=== PATIENT | male | born 1945 | race Caucasian/White ===

== ENCOUNTER → 2016-12-07 | Outpatient (REF) | payer MEDICARE, OTHER | LOC: M LABDRAW1 09:39 | PROVIDERS: ATTEND Optometrist | DX: H53.2 Diplopia (principal) ==

== ENCOUNTER → 2016-12-23 | Outpatient (CLI) | payer MEDICARE, OTHER ==
[~2016-12-23] MED LIST: PROHANCE 279.3MG/ML 15ML VIAL (A9576) As Ordered ONE; PROHANCE 279.3MG/ML 5ML VIAL (A9576) As Ordered ONE
--- NOTE | 2016-12-23 19:30 | REP ---
MR BRAIN WITHOUT AND WITH CONTRAST: HISTORY: Diplopia. CONTRAST: ProHance 16.4 mL. COMPARISON: 07/21/2014. Areas of increased signal intensity on T2 weighted images are present in the basal ganglia and thalami. These represent old lacunar infarctions. Areas of increased signal intensity on T2 weighted images are present in the periventricular and subcortical white matter and bimal. This represents small vessel ischemic disease. There is no intraparenchymal hemorrhage, acute infarct, mass or midline shift. There is no abnormal enhancement. The ventricular system and cortical sulci as well as subarachnoid space and posterior fossa are dilated consistent with minimal volume loss. There is no extracerebral collection. Mucosal thickening is present in the maxillary sinuses. IMPRESSION: 1. 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 2. Small vessel ischemic disease. 3. Minimal volume loss. Signed by Alvin Cheng MD 12/24/2016 08:30 A
--- NOTE | 2016-12-23 21:42 | REP ---
MRI ORBITS WITHOUT AND WITH CONTRAST: HISTORY: Double vision. CONTRAST: ProHance 16.4 mL The globes, optic nerves and rectus muscles are normal in appearance. There is no orbital lesion. There is no abnormal enhancement. The optic chiasm, cavernous sinus and hypothalamus are normal in appearance. Minimal mucosal thickening is present in the ethmoid and maxillary sinuses. IMPRESSION: There is no orbital lesion. Signed by Alvin Cheng MD 12/24/2016 08:30 A
== END ==
LOC: M RAD 10:11
PROVIDERS: ATTEND Ophthalmology
DX: H53.2 Diplopia (principal)
CPT/HCPCS: 70543; 70553; A9576

== ENCOUNTER → 2017-12-14 | Outpatient (REF) | payer MEDICARE, OTHER ==
[2017-12-16 18:35] LABS: RHEUMATOID FACTOR QUANT < 10.0 IU/ML (<15.0)
[2017-12-16 18:35] LABS: URIC ACID 5.1 MG/DL (3.5-7.2)
[2017-12-18 15:38] LABS: ANTINUCLEAR ANTIBODIES DIRECT Negative (Negative); Lyme Disease IgG/IgM Antibodie <0.91 ISR (0.00-0.90); Lyme Disease IgM Ab Quantitati <0.80 index (0.00-0.79)
== END ==
LOC: M LAB REF 12-16 17:09
DX: M25.50 Pain in unspecified joint (principal)
CPT/HCPCS: 84550

== ENCOUNTER → 2019-03-17 | Outpatient (REF) | payer MEDICARE, OTHER ==
[2019-03-17 12:59] LABS: BASO # 0.1 10^3/uL (0.0-0.2); BASO % 0.5 % (0.0-1.0); EOS # 0.3 10^3/uL (0.0-0.5); EOS % 2.8 % (0.0-3.0); HEMATOCRIT 45.3 % (42.0-52.0); HEMOGLOBIN 14.5 g/dl (13.5-17.5); LYMPH # 3.3 10^3/uL (1.5-5.0); LYMPH % 27.9 % (24.0-44.0); MEAN CORPUSCULAR HEMOGLOBIN 33.1 pg (27.0-33.0); MEAN CORPUSCULAR VOLUME 103.4 fl (80.0-96.0); MONO # 0.9 10^3/uL (0.0-0.8); MONO % 7.6 % (0.0-5.0); NEUTROPHILS # 7.1 10^3/uL (1.5-8.5); NEUTROPHILS % 60.8 % (36.0-66.0); PLATELET COUNT, AUTOMATED 233 10^3/uL (150-450); RED BLOOD COUNT 4.38 10^6/uL (4.30-6.10); WHITE BLOOD COUNT 11.7 10^3/uL (4.0-10.0)
== END ==
LOC: M LAB REF 12:31
PROVIDERS: ATTEND Family Medicine
DX: D72.829 Elevated white blood cell count, unspecified (principal); D64.9 Anemia, unspecified

== ENCOUNTER 2019-11-02 16:29 | Emergency (ER) | payer MEDICARE, OTHER ==
[~2019-11-02] VITALS: Ht 172.7 cm; Wt 82.5 kg
[2019-11-02] MEDS ORDERED: mvi (16:41)
[2019-11-02] MEDS ORDERED: ASPI-264 PO (16:41)
[2019-11-02] MEDS ORDERED: vitamin c (16:41)
[2019-11-02] MEDS ORDERED: LATA0.0015 (16:41)
[2019-11-02] MEDS ORDERED: LEVO100T5 (16:41)
[2019-11-02] MEDS ORDERED: AMLO1TAB25 (16:41)
[2019-11-02] MEDS ORDERED: ALFU10TA3 (16:41)
[2019-11-02] MEDS ORDERED: HYDR25TAB (16:41)
[2019-11-02] MEDS ORDERED: [UNRECOGNIZED DRUG - CODE] (16:41)
[2019-11-02] MEDS ORDERED: FINA5TAB2 (16:41)
--- NOTE | 2019-11-02 17:24 | REPVR ---
PROCEDURE INFORMATION: Exam: XR Right Finger(s) Exam date and time: 11/02/2019 4:55 PM Age: 74 years old Clinical indication: Injury or trauma; Fall; Initial encounter; Sprain or strain; Right; Index finger; Additional info: Pain, deformity, wound, index finger TECHNIQUE: Imaging protocol: XR Right fingers. Views: Minimum 2 views. COMPARISON: No relevant prior studies available. FINDINGS: Bones/joints: There is a posterior dislocation involving the 2nd proximal interphalangeal joint. There is a questionable subtle chip fracture seen on the lateral view just anterior to the head of the proximal phalanx. Soft tissues: There is soft tissue air seen dorsally at the level of the distal 2nd proximal phalanx. IMPRESSION: 1. Dislocation with air in the soft tissues. 2. Questionable chip fracture head of the 2nd proximal phalanx. Electronically signed by: Linwood Forde On 11/02/2019 17:24:19 PM
[2019-11-02] MEDS ORDERED: BOOSTRIX/ADACEL VACCINE (DIPHTH/PERTUSS/ACELL/TETANUS) 0.5ML SYR IM ONE (17:30)
[2019-11-02] MEDS ORDERED: ceFAZolin SOD 1 GM in D5W MINI-BAG PLUS 50 ML IV ONE (17:45)
--- NOTE | 2019-11-02 17:58 | REPVR ---
PROCEDURE INFORMATION: Exam: CT Head Without Contrast Exam date and time: 11/02/2019 5:23 PM Age: 74 years old Clinical indication: Injury or trauma; Fall; Initial encounter; Blunt trauma (contusions or hematomas) TECHNIQUE: Imaging protocol: Computed tomography of the head without contrast. Radiation optimization: All CT scans at this facility use at least one of these dose optimization techniques: automated exposure control; mA and/or kV adjustment per patient size (includes targeted exams where dose is matched to clinical indication); or iterative reconstruction. COMPARISON: MRI-Brain W/O FOLL BY WITH 12/23/2016 11:02 AM FINDINGS: Brain: Stable central and cortical atrophy and small vessel ischemic disease since the MRI. No intracranial hemorrhage. Small polyps are cysts in maxillary sinuses with scattered ethmoidal air cell disease. Ventricles: No ventriculomegaly. Bones/joints: Unremarkable. No acute fracture. Paranasal sinuses: See "Brain" finding. Mastoid air cells: Visualized mastoid air cells are well aerated. Soft tissues: Small right frontal scalp hematoma. IMPRESSION: 1. Frontal scalp hematoma on the right no evidence of intracranial bleed. 2. Intracranial changes. Electronically signed by: Linwood Forde On 11/02/2019 17:58:16 PM
--- NOTE | 2019-11-02 18:11 | REPVR ---
PROCEDURE INFORMATION: Exam: CT Cervical Spine Without Contrast Exam date and time: 11/02/2019 5:23 PM Age: 74 years old Clinical indication: Injury or trauma; Fall; Initial encounter; Blunt trauma TECHNIQUE: Imaging protocol: Computed tomography images of the cervical spine without contrast. Radiation optimization: All CT scans at this facility use at least one of these dose optimization techniques: automated exposure control; mA and/or kV adjustment per patient size (includes targeted exams where dose is matched to clinical indication); or iterative reconstruction. COMPARISON: No relevant prior studies available. FINDINGS: Vertebrae: Mild anterolisthesis of C6 on C7 with intervertebral osteophytes. Mild foraminal stenosis on the left at C4, bilateral mild foraminal stenosis at C5 secondary to uncinate joint osteophytes. Discs/Spinal canal/Neural foramina: There are degenerative changes demonstrated in the atlantoaxial joint at C1-C2 with osteophytes and joint space narrowing. The transverse ligament is normal. Soft tissues: See "Discs/Spinal canal/Neural foramina" finding. Lungs: Mild centrilobular and paraseptal emphysema in the upper lung zones. IMPRESSION: 1. Mild anterolisthesis of C6 on C7 with intervertebral osteophytes. Mild foraminal stenosis on the left at C4, bilateral mild foraminal stenosis at C5 secondary to uncinate joint osteophytes. 2. Mild degenerative spondylosis. 3. No acute findings. Electronically signed by: Galen Harrell On 11/02/2019 18:11:26 PM
--- NOTE | 2019-11-02 18:12 | REPVR ---
PROCEDURE INFORMATION: Exam: XR Right Finger(s) Exam date and time: 11/02/2019 5:41 PM Age: 74 years old Clinical indication: Injury or trauma; Injury history: Post reduction; Follow-up exam; Dislocation; Severity not specified; Right; Index finger; Additional info: R index finger reduction TECHNIQUE: Imaging protocol: XR Right fingers. Views: Minimum 2 views. COMPARISON: CR Fingers RIGHT 11/02/2019 5:01 PM FINDINGS: Bones/joints: Satisfactory reduction of a previously dislocated index finger. Otherwise unremarkable. Soft tissues: Normal. IMPRESSION: Satisfactory reduction of a previously dislocated index finger. Electronically signed by: Galen Harrell On 11/02/2019 18:12:31 PM
[2019-11-02] MEDS ORDERED: LIDOCAINE 1% MDV 20ML VIAL INFIL ONE (18:45)
--- NOTE | 2019-11-02 20:00 | REPVR ---
PROCEDURE INFORMATION: Exam: MR Right Upper Extremity Other Than Joint Without Contrast; Hand Exam date and time: 11/02/2019 7:30 PM Age: 74 years old Clinical indication: Injury or trauma; Injury history: Fall and sliced base of first finger; Injury date: 11/01/19; Additional info: Right index finger injury, R/O flexor tendon injury TECHNIQUE: Imaging protocol: MR of the Right upper extremity without contrast. Exam focused on the hand. COMPARISON: CR Fingers RIGHT 11/02/2019 5:39 PM FINDINGS: Bones and cartilage: Unremarkable. Joint spaces: No joint effusion. Collateral ligaments of digits: Unremarkable. No evidence of tear. Flexor compartment tendons: Visualized flexor tendons are intact. Fluid demonstrated in the flexor tendon sheath of the middle finger consistent with synovitis. Extensor compartment tendons: Visualized extensor tendons are intact. Muscles: Unremarkable. Soft tissues: Soft tissue edema demonstrated in the thenar eminence including T1-T2 bright signal consistent with acute hemorrhage. IMPRESSION: 1. Soft tissue edema demonstrated in the thenar eminence including T1-T2 bright signal consistent with acute hemorrhage. 2. Visualized flexor tendons are intact. Visualized extensor tendons are intact. 3. Fluid demonstrated in the flexor tendon sheath of the middle finger consistent with synovitis. Electronically signed by: Galen Harrell On 11/02/2019 19:59:50 PM
[2019-11-02] MEDS ORDERED: KEFL500C17 PO (20:38)
[2019-11-02 20:56] VITALS: BP 146/81
== END 2019-11-02 21:26 | disposition home or self-care (01) ==
LOC: M ED 16:29
DX: S63.284A Dislocation of proximal interphalangeal joint of right ring finger, initial encounter (principal); S61.210A Laceration without foreign body of right index finger without damage to nail, initial encounter; S00.03XA Contusion of scalp, initial encounter; S09.90XA Unspecified injury of head, initial encounter; W01.198A Fall on same level from slipping, tripping and stumbling with subsequent striking against other object, initial encounter; Y92.015 Private garage of single-family (private) house as the place of occurrence of the external cause; M43.12 Spondylolisthesis, cervical region; M48.02 Spinal stenosis, cervical region; M79.89 Other specified soft tissue disorders; E03.9 Hypothyroidism, unspecified; F17.210 Nicotine dependence, cigarettes, uncomplicated; Z79.899 Other long term (current) drug therapy
CPT/HCPCS: 12001; 26770; 70450; 72125; 73140; 73218; 90471; 90715; 96365; 99284; J0690

== ENCOUNTER → 2020-12-09 | Outpatient (REF) | payer MEDICARE, OTHER ==
[~2020-12-09] MED LIST changes: +ALFU10TA3; +AMLO1TAB25; +ASPI-264 PO; +FINA5TAB2; +HYDR-3490; +KEFL500C17 PO; +LATA0.0015; +LEVO100T5; -PROHANCE 279.3MG/ML 15ML VIAL (A9576) As Ordered ONE; -PROHANCE 279.3MG/ML 5ML VIAL (A9576) As Ordered ONE; +[UNRECOGNIZED DRUG - CODE]; +mvi; +vitamin c
== END ==
LOC: M LAB REF 11:15
PROVIDERS: ATTEND Family Medicine
DX: D72.829 Elevated white blood cell count, unspecified (principal)

== ENCOUNTER 2022-08-04 07:42 | Day surgery (SDC) | payer MEDICARE, OTHER ==
[~2022-08-04] VITALS: Ht 172.7 cm; Wt 86.8 kg
[~2022-08-04 07:42] MED LIST changes: -ALFU10TA3; +ALFU10TA3 PO; -AMLO1TAB25; +AMLO1TAB25 PO; +BSS IRR 500ML/OMIDRIA 4ML IRR BAG (OR ONLY) As Ordered ONE; +CEFUROXIME 1MG/0.1ML INTRACAMERAL INJ As Ordered ONE; +CIDA500T2 PO; +CYCLOPENTOLATE 1% OPHTH SOLN 2ML BTL OD SCH; +D3 S1CAP3 PO; +FAMO40TA3 PO; -FINA5TAB2; +FINA5TAB2 PO; -HYDR-3490; +HYDR-3490 PO; -LEVO100T5; +LEVO100T5 PO; +LIDOCAINE 1% SDV 5ML VIAL As Ordered ONE; +OFLOXACIN 0.3 % (OCUFLOX) OPTH SOL 5ML OD SCH; +OSTETAB2 PO; +PHENYLEPHRINE 2.5% OPHTH SOL 2ML OD SCH; +PROPARACAINE 0.5% OPHTH SOL 15ML OD ONE; +TROPICAMIDE 1% OPHTH SOLN 15ML OD SCH; +VITA100065 PO; +VITMTA PO
[2022-08-04] MEDS ORDERED: MIDAZOLAM INJ 2MG/2ML VIAL As Ordered ONE (09:27)
[2022-08-04] MEDS ORDERED: fentaNYL 100 MCG/2 ML INJECTION As Ordered ONE (09:27)
[2022-08-04 09:35] VITALS: BP 123/70; TEMP 97.5; O2SAT 97
== END 2022-08-04 09:55 | disposition home or self-care (01) ==
LOC: M SDC 07:42
PROVIDERS: ATTEND Ophthalmology
DX: H25.11 Age-related nuclear cataract, right eye (principal); I10 Essential (primary) hypertension; E03.9 Hypothyroidism, unspecified; K21.9 Gastro-esophageal reflux disease without esophagitis; N40.0 Benign prostatic hyperplasia without lower urinary tract symptoms; Z79.899 Other long term (current) drug therapy; Z79.82 Long term (current) use of aspirin; Z87.891 Personal history of nicotine dependence
CPT/HCPCS: 66984; J0697; J1097; J2250; J3010; V2632